=== PATIENT | male | born 1995 | race Two or more races ===

== ENCOUNTER 2021-02-17 09:15 | Emergency (ER) | payer SELFPAY ==
[2021-02-17 11:42] LABS: CORONAVIRUS COVID-19 NAA NEGATIVE (NEGATIVE)
--- NOTE | 2021-02-17 11:44 | EDM.PDOC ---
ED HPI GENERAL MEDICAL PROBLEM - General Chief Complaint: Respiratory Problem Stated Complaint: COVID SYMPTOMS Time Seen by Provider: 02/17/21 10:57 Source of Information: Reports: Patient History Limitations: Reports: Language Barrier - History of Present Illness INITIAL COMMENTS - FREE TEXT/NARRATIVE: 25-year-old Vietnamese-speaking only male presents the emergency department today. He had to use the iPad fiber artist to communicate with the patient. Patient states that he has had sinus congestion and a runny nose for about 7 days now. He states his employer sent him to the emergency department to get tested for Covid. Patient states that other than the sinus congestion and rhinitis he has felt fine. He denies any fever, chills, nausea, vomiting, diarrhea. He denies headache, sore throat, cough or shortness of breath. He states he is otherwise healthy. He has not a smoker and he drinks alcohol socially. He does not have any previous medical history and does not have a primary care provider. - Related Data Allergies Allergy/AdvReac Type Severity Reaction Status Date / Time No Known Allergies Allergy Verified 02/17/21 10:41 Home Meds: Home Meds . [No Known Home Meds] 02/17/21 [History] Past Medical History - Past Health History Medical/Surgical History: Denies Medical/Surgical History Cardiovascular History: Reports: Hypertension - Infectious Disease History Infectious Disease History: Reports: Chicken Pox Social & Family History - Tobacco Use Tobacco Use Status *Q: Never Tobacco User Second Hand Smoke Exposure: No - Caffeine Use Caffeine Use: Reports: Energy Drinks - Recreational Drug Use Recreational Drug Use: No ED ROS GENERAL - Review of Systems Review Of Systems: Comprehensive ROS is negative, except as noted in HPI. ED EXAM, GENERAL - Physical Exam Exam: See Below Exam Limited By: Language Barrier (Use the operations lieutenant iPad) General Appearance: Alert, WD/WN, No Apparent Distress Ears: Normal External Exam, Hearing Grossly Normal Nose: Normal Inspection, Normal Mucosa, No Blood Throat/Mouth: Normal Inspection, Normal Lips, Normal Voice, No Airway Compromise Head: Atraumatic, Normocephalic Neck: Normal Inspection, Supple Respiratory/Chest: No Respiratory Distress, Lungs Clear, Normal Breath Sounds, No Accessory Muscle Use, Chest Non-Tender Cardiovascular: Normal Peripheral Pulses, Regular Rate, Rhythm, No Edema, No Murmur Peripheral Pulses: 2+: Radial (L), Radial (R) GI/Abdominal: Normal Bowel Sounds, Soft, Non-Tender, No Distention (Male) Exam: Deferred Rectal (Males) Exam: Deferred Back Exam: Normal Inspection, Full Range of Motion Extremities: Normal Inspection, Normal Range of Motion, Non-Tender, No Pedal Edema, Normal Capillary Refill Neurological: Alert, Oriented, Normal Cognition Psychiatric: Normal Affect, Normal Mood Skin Exam: Warm, Dry, Intact, Normal Color, No Rash Lymphatic: No Adenopathy Course - Vital Signs Text/Narrative:: As stated above, patient presents with sinus congestion and rhinitis. Physical exam is unremarkable. Patient was sent here by his employer as he tested for Covid. I have ordered a Covid swab. He will be discharged home once we know the results of this. Last Recorded V/S: Last Vital Signs Temp 97.2 F 02/17/21 10:35 Pulse 100 02/17/21 10:35 Resp 20 02/17/21 10:35 BP 147/89 H 02/17/21 10:35 Pulse Ox 98 02/17/21 10:35 - Orders/Labs/Meds Labs: Laboratory Tests 02/17/21 Range/Units 09:28 Influenza Type A RNA Negative (NEGATIVE) Influenza Type B RNA Negative (NEGATIVE) SARS-CoV-2 RNA ([facility]) Negative (NEGATIVE) - Re-Assessments/Exams Free Text/Narrative Re-Assessment/Exam: 02/17/21 12:05 Influenza A, influenza B and Covid swabs are all negative. Patient will be discharged home. Departure - Departure Time of Disposition: 12:05 Disposition: Home, Self-Care 01 Condition: Good Clinical Impression: Viral upper respiratory tract infection - Discharge Information Instructions: Upper Respiratory Infection, Adult, [id number] Referrals: PCP,None [Primary Care Provider] - Forms: ED Department Discharge Additional Instructions: You were seen in the emergency department today to have Covid testing completed. Your Covid swab is negative. You do not have Covid. Go home, drink plenty of fluids to stay hydrated. May take Tylenol 650 mg every 4 hours as needed for discomfort with ibuprofen 600 mg every 8 hours needed for discomfort. Sepsis Event Note (ED) - Focused Exam Vital Signs: Vital Signs Temp Pulse Resp BP Pulse Ox 02/17/21 10:35 97.2 F 100 20 147/89 H 98
== END 2021-02-17 12:30 | disposition home or self-care (01) ==
LOC: JD.ED 09:15
DX: J06.9 Acute upper respiratory infection, unspecified (principal); Z20.822 Contact with and (suspected) exposure to COVID-19
CPT/HCPCS: 0240U; 99283; 99282